=== PATIENT | female | born 1990 | race Caucasian/White ===

== ENCOUNTER → 2017-02-24 | Outpatient (CLI) | payer OTHER ==
[~2017-02-24] MED LIST: AMOXIL500 M1 PO; BACTROBAN22 GM TOP; PREDNISONE PO; SYNTHROID0.05 MG PO; YASMIN 28 TABLE1 TAB PO
== END | disposition home or self-care (01) ==
LOC: CECH 13:23
DX: R53.82 Chronic fatigue, unspecified (principal)
CPT/HCPCS: 93306